=== PATIENT | female | born 1935 | race Caucasian/White ===

== ENCOUNTER 2016-09-03 16:01 | Outpatient (CLI) | payer MEDICARE, OTHER | END 2016-09-03 20:23 | disposition home or self-care (01) | LOC: MRD 16:01 | PROVIDERS: ATTEND Family Medicine | DX: Z01.818 Encounter for other preprocedural examination (principal); J44.9 Chronic obstructive pulmonary disease, unspecified; I51.7 Cardiomegaly; Z95.1 Presence of aortocoronary bypass graft | CPT/HCPCS: 71020 ==